=== PATIENT | female | born 2005 | race Caucasian/White ===

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

== ENCOUNTER 2025-06-10 00:29 | Emergency (ER) | payer OTHER ==
[2025-06-10 00:43] VITALS: TEMP 97.6
[2025-06-10] MEDS ORDERED: Reglan 10 MG/2 ML ONE (01:02)
[2025-06-10] MEDS ORDERED: BENADRYL 50 MG/ML ONE (01:02)
--- NOTE | 2025-06-10 01:14 | ERPHSYRPT ---
- History of Present Illness Source: patient Exam Limitations: no limitations Patient Subjective Stated Complaint: pt states that she has had a headache for the past 2 days. pt states that nothing is touching the pain Triage Nursing Assessment: pt ambulated into the er; pt is axo x4; c/o headache; pt states 8/10 pain to head; c/o nausea; pupils 4 mm and PERRL; strong tashia head custodian and pushes; skin PDW; no respiratory distress present; vitals wnl Physician History: Patient has a headache. It is posterior. It is described as throbbing. She says light hurts her eyes and she has been nauseated but she has not thrown up. She is never had a lot of headaches in the past. She says the pain is manageable. Is been going on for about 2 days. It has come on and off. Nothing really seems to make it better. Light makes it worse. She also gets nauseated with it.It was not an acute onset like a thunderclap or anything like that. There is no seizure activity or any worrisome signs or symptoms with it. Quality: aching Head Pain Location: occipital Severity of Pain-Max: severe Severity of Pain-Current: moderate Recent Head Trauma: no recent headache/trauma Allergies/Adverse Reactions: No Known Drug Allergies Allergy (Verified 06/10/25 00:34) Home Medications: No Reportable Medications [No Reported Medications] 06/10/25 [History] Hx Tetanus, Diphtheria Vaccination/Date Given: Yes Hx Influenza Vaccination/Date Given: No Hx Pneumococcal Vaccination/Date Given: No Travel Risk - International Travel Have you traveled outside of the country in past 3 weeks: No - Emerging Infectious Disease Are you exhibiting symptoms associated with any current EIDs: Yes Symptoms: Headaches/Body Aches/ - Review of Systems Constitutional: No Symptoms Eyes: No Symptoms Ears, Nose, & Throat: No Symptoms Respiratory: No Symptoms Cardiac: No Symptoms Abdominal/Gastrointestinal: No Symptoms Genitourinary Symptoms: No Symptoms Musculoskeletal: No Symptoms Neurological: No Symptoms All Other Systems: Reviewed and Negative - Past Medical History Pertinent Past Medical History: No - Past Surgical History Past Surgical History: Yes Other Surgical History: rt arm- fx, hardware - Female History Hx Last Menstrual Period: 06/08/25 Hx Now: No - Social History Smoking Status: Light tobacco smoker Exposure to second hand smoke: Yes Drug Use: marijuana - Social Determinants of Health Will the patient participate in the screening: Yes Do you worry about a steady place to live?: No Do you have any problems with any of the following?: No known problems In the past 12 months,have you had to go without utilities?: No Transportation Issues: No Has anyone in your support network made you feel unsafe?: No Have you or anyone in your house had to go w/o enough food: No - Nursing Vital Signs Nursing Vital Signs: Initial Vital Signs Blood Pressure 138/73 06/10/25 00:33 O2 Sat by Pulse Oximetry 100 06/10/25 00:33 Pain Scale Pain Intensity 3 - Physical Exam SpO2: 98 Ordered Tests: Medication Summary Discontinued Medications Generic Name Dose Route Start Last Admin Trade Name Ingris PRN Reason Stop Dose Admin Diphenhydramine HCl 50 mg 06/10/25 00:57 06/10/25 01:26 Diphenhydramine Hcl 50 Mg/Ml Vial IV 06/10/25 00:58 50 mg STAT ONE Administration Diphenhydramine HCl Confirm 06/10/25 01:02 Diphenhydramine Hcl 50 Mg/Ml Vial Administered 06/10/25 01:03 Dose 50 mg .ROUTE .STK-MED ONE Metoclopramide HCl 10 mg 06/10/25 00:57 06/10/25 01:25 Metoclopramide Hcl 10 Mg/2 Ml Vial IV 06/10/25 00:58 10 mg STAT ONE Administration Metoclopramide HCl Confirm 06/10/25 01:02 Metoclopramide Hcl 10 Mg/2 Ml Vial Administered 06/10/25 01:03 Dose 10 mg .ROUTE .STK-MED ONE - Progress Progress: improved Air Movement: good Progress Note: I gave her Benadryl and Reglan. Her headache improved dramatically. I wanted discharged her home. 06/10/25 02:02 - Departure Departure Disposition: Home Clinical Impression: Headache, migraine Condition: Stable Critical Care Time: No Referrals: JORGE JUSTICE NP [Primary Care Provider, UNKNOWN] - Follow up/PCP as directed Instructions: Headache, Adult (DC)
[2025-06-10] MEDS: Reglan 10 MG/2 ML IV ONE (01:25)
[2025-06-10 01:26] VITALS: RESP 19
[2025-06-10] MEDS: BENADRYL 50 MG/ML IV ONE (01:26)
[2025-06-10 02:15] VITALS: BP 121/77; PULSE 92; O2SAT 100
== END 2025-06-10 02:15 | disposition home or self-care (01) ==
LOC: ED 00:29
DX: G43.909 Migraine, unspecified, not intractable, without status migrainosus (principal); Z72.0 Tobacco use